=== PATIENT | female | born 1960 | race Caucasian/White ===

== ENCOUNTER 2017-03-22 19:17 | Emergency (ER) | payer MEDICARE, OTHER ==
[2017-03-22 20:38] LABS: HEMOGLOBIN 15.6 gm/dl (12.3-15.3); RED BLOOD COUNT 4.6 M/UL (4.00-5.10); WHITE BLOOD COUNT 7.6 K/UL (4.5-11.0)
[2017-03-22 20:58] LABS: BUN/CREATININE RATIO 13 (0-10)
== END 2017-03-23 01:47 | disposition home or self-care (01) ==
LOC: ER1 19:17
PROVIDERS: Family Medicine
DX: R10.9 Unspecified abdominal pain (principal); R11.2 Nausea with vomiting, unspecified; I10 Essential (primary) hypertension; F17.200 Nicotine dependence, unspecified, uncomplicated; Z88.1 Allergy status to other antibiotic agents; Z79.82 Long term (current) use of aspirin; Z79.899 Other long term (current) drug therapy
CPT/HCPCS: 36415; 74000; 80053; 81001; 82150; 83690; 85025; 93005; 96374; 96375; 96376; 99284; J2060; J2270; J2405; J7030; J7050; Q9962